=== PATIENT | female | born 1960 | race Caucasian/White ===

== ENCOUNTER 2020-10-04 11:44 | Inpatient (IN) | payer MEDICARE, OTHER ==
[~2020-10-04] VITALS: Ht 152.4 cm; Wt 84.0 kg
--- NOTE | 2020-10-04 12:27 | REP ---
INDICATION: CHEST PAIN. COMPARISON: None. TECHNIQUE: Single portable AP view of the chest was performed. FINDINGS: There is no acute infiltrate or pulmonary edema. Lungs are clear. The heart is not significantly enlarged. The mediastinal silhouette is unremarkable. The visualized osseous structures are intact. IMPRESSION: No acute pulmonary disease. <Electronically signed by Otis Shaffer > 10/04/20 [id number]
[2020-10-04 12:31] LABS: BASO % 0.2 % (0.0-1.0); EOS % 0.2 % (0.0-3.0); HEMOGLOBIN 11.2 g/dl (12.0-15.5); LYMPH # 1.6 10^3/uL (1.5-5.0); LYMPH % 28.1 % (24.0-44.0); MEAN CORPUSCULAR HEMOGLOBIN 19.8 pg (27.0-33.0); MEAN CORPUSCULAR HGB CONC 30.3 g/dl (32.0-36.5); MEAN CORPUSCULAR VOLUME 65.3 fl (80.0-96.0); MONO # 0.3 10^3/uL (0.0-0.8); MONO % 5.7 % (2.0-8.0); NEUTROPHILS # 3.6 10^3/uL (1.5-8.5); NEUTROPHILS % 65.3 % (36.0-66.0); PLATELET COUNT, AUTOMATED 271 10^3/uL (150-450); RED BLOOD COUNT 5.67 10^6/uL (4.00-5.40); WHITE BLOOD COUNT 5.6 10^3/uL (4.0-10.0)
[2020-10-04 12:45] LABS: INR 0.92; PROTHROMBIN TIME 12.5 SECONDS (12.5-14.3)
[2020-10-04] MEDS ORDERED: MECLIZINE 25 MG TABLET PO ONE (13:00)
[2020-10-04] MEDS ORDERED: ONDANSETRON 4MG/2ML VIAL IV ONE (13:00)
[2020-10-04 13:02] LABS: ALBUMIN 3.9 GM/DL (3.2-5.2); ALT/SGPT 23 U/L (12-78); BILIRUBIN,DIRECT 0.1 MG/DL (0.0-0.2); BILIRUBIN,TOTAL 0.5 MG/DL (0.2-1.0); CK-MB VALUE MASS < 1.0 NG/ML (<3.6); CPK CREATINE PHOSPHOKINASE 55 U/L (26-192); LIPASE 91 U/L (73-393); MB/CK RELATIVE INDEX 1.82 (< OR =4); TOTAL PROTEIN 7.8 GM/DL (6.4-8.2); TROPONIN I < 0.02 NG/ML (< 0.10)
[2020-10-04 13:12] LABS: BLOOD UREA NITROGEN 14 MG/DL (7-18); CALCIUM LEVEL 9.3 MG/DL (8.8-10.2); CARBON DIOXIDE LEVEL 27 MEQ/L (21-32); CHLORIDE LEVEL 107 MEQ/L (98-107); CREATININE FOR GFR 0.58 MG/DL (0.55-1.30); GLOMERULAR FILTRATION RATE > 60.0 (>45); GLUCOSE, FASTING 94 MG/DL (70-100); SODIUM LEVEL 140 MEQ/L (136-145)
[2020-10-04] MEDS ORDERED: CYMB1CAP5 PO (13:14)
[2020-10-04] MEDS ORDERED: ESTR625TA PO (13:14)
[2020-10-04] MEDS ORDERED: VALI5TAB PO (13:14)
[2020-10-04] MEDS ORDERED: ISOVUE-370 76% 100ML VIAL As Ordered ONE (13:31)
[2020-10-04] MEDS ORDERED: diazePAM 2 MG TAB PO ONE (14:15)
--- NOTE | 2020-10-04 15:32 | REPVR ---
PROCEDURE INFORMATION: Exam: CT Head Without Contrast Exam date and time: 10/04/2020 12:57 PM Age: 60 years old Clinical indication: Pain; Dizziness; Headache; Additional info: Headache dizzy vomiting TECHNIQUE: Imaging protocol: Computed tomography of the head without contrast. Radiation optimization: All CT scans at this facility use at least one of these dose optimization techniques: automated exposure control; mA and/or kV adjustment per patient size (includes targeted exams where dose is matched to clinical indication); or iterative reconstruction. COMPARISON: No relevant prior studies available. FINDINGS: Brain: No acute intracranial hemorrhage, cerebral edema, or midline shift. Cerebral ventricles: No hydrocephalus. Paranasal sinuses: There is no acute sinusitis. Mastoid air cells: Visualized mastoid air cells are well aerated. Orbital cavity: Unremarkable as visualized. Bones/joints: No acute fracture. Soft tissues: Unremarkable. IMPRESSION: No acute intracranial abnormality. Electronically signed by: Davion Hodgson On 10/04/2020 15:32:26 PM
--- NOTE | 2020-10-04 15:40 | REP ---
INDICATION: chest pain SOB. COMPARISON: None. TECHNIQUE: CT angiogram chest performed following the intravenous administration of 100 cc of Isovue 370. Sagittal and coronal reconstruction images are performed. FINDINGS: Lungs: Clear, no infiltrate or nodule. Mediastinum: No adenopathy. Pulmonary arteries: No evidence of pulmonary embolism. Elizabeth: No adenopathy. Axilla: No adenopathy. Pleura: No effusion. Heart: Not enlarged. Thoracic aorta: No aneurysm or dissection. Upper abdominal structures: There are degenerative changes of the spine without compression deformity. Visualized osseous structures: Unremarkable. IMPRESSION: No CT evidence of pulmonary embolism. No infiltrate seen. <Electronically signed by Otis Shaffer > 10/04/20 [id number]
[2020-10-04] MEDS ORDERED: D31000TA2 PO (15:41)
[2020-10-04 16:39] LABS: RSV AMPLIFICATION NEGATIVE (NEGATIVE)
--- NOTE | 2020-10-04 17:04 | ECGEPIP ---
[facility] - ED Test Date: 2020-10-04 Pat Name: GERI RUBY Department: Room: - Gender: Female Second Vp Hr Assessment: HC : 1960 Requested By: KALA Kent Order Number: [id number] Reading MD: Madiha Grullon Measurements Intervals [place] Rate: 87 P: 42 IN: 138 QRS: 29 QRSD: 80 T: 33 QT: 386 QTc: 464 Interpretive Statements Normal sinus rhythm Cannot rule out Anterior infarct , age undetermined NSTTW abnormalities No prior Electronically Signed on 10-04-2020 17:04:14 EDT by Madiha Grullon
[2020-10-04 18:46] LABS: CK-MB VALUE MASS < 1.0 NG/ML (<3.6); CPK CREATINE PHOSPHOKINASE 45 U/L (26-192); MB/CK RELATIVE INDEX 2.22 (< OR =4); TROPONIN I < 0.02 NG/ML (< 0.10)
[2020-10-04] MEDS ORDERED: GI COCKTAIL 50ML BTL(HYOSCYAMINE/MAALOX/LIDOCAINE VISCOUS)(1:3:1) PO PRN (19:05)
[2020-10-04] MEDS ORDERED: PANTOPRAZOLE 40MG TAB (PROTONIX) PO ONE (19:05)
[2020-10-04] MEDS ORDERED: GI COCKTAIL 50ML BTL(HYOSCYAMINE/MAALOX/LIDOCAINE VISCOUS)(1:3:1) PO ONE (19:05)
[2020-10-04] MEDS ORDERED: diazePAM 5MG TABLET PO PRN (19:05)
[2020-10-04] MEDS: MECLIZINE 25 MG TABLET PO SCH ×2 (19:37→23:17)
[2020-10-04 20:03] VITALS: BP_SYST 115; BP_SYST 119; BP_SYST 124; BP_DIAS 59; BP_DIAS 75; BP_DIAS 81
--- NOTE | 2020-10-04 20:22 | HPE ---
HISTORY AND PHYSICAL DATE OF ADMISSION: 10/04/2020 CHIEF COMPLAINT: "The room is spinning." HISTORY OF PRESENT ILLNESS: A 60-year-old female who lives near [place], vacationing in the [facility] until this Sunday, presented to the emergency room after waking up short or breath. The patient says he has had no prior episodes of vertigo before, denies any shortness of breath, chest pain pressure, fever, chills, sore throat, runny nose, ear discharge in the past few days. The patient complained also of epigastric abdominal discomfort described as chest pain radiating across the abdomen, underneath the ribs that occurs occasionally with history of reflux and a hiatal hernia in the past. The patient was unable to ambulate well, holding onto her with her vertigo. She denied any changes in vision, blurred vision, diplopia. She did have some nausea, one episode of vomiting, has had decrease in oral intake due to this. Along with this, she has chronic left lower quadrant abdominal discomfort that acts on and off, lasts for a few minutes, described as very crampy, lasts for several hours, unchanged by position or food as well as paresthesias in the left anterior thigh that she has had for the past one week. She was concerned about these symptoms and presented to the ER for further evaluation. Glucose level was 94. CT of the head was negative. CT of the chest to rule out aneurysm, PE was also negative. Chest x-ray was negative. EKG was sinus rhythm without acute ST-T wave changes. Hospitalist was called to admit the patient. She was not orthostatic when she came in, no dehydrated. All blood work was negative including troponins x2 sets. PAST MEDICAL HISTORY: 1. Hiatal hernia. 2. Gastroesophageal reflux disease. 3. Cervical and thoracic disc bulging. 4. Hypothyroidism. 5. Thyroid nodules with negative, benign biopsy. 6. Dyslipidemia. 7. Endometriosis requiring hysterectomy. 8. Left hernia repair. PAST SURGICAL HISTORY: 1. Hysterectomy due to uncontrolled bleeding from endometriosis. 2. EGD showing hiatal hernia and gastroesophageal reflux. 3. Left hernia repair. 4. Tonsillectomy. 5. Right foot injury with surgical repair many years ago. ALLERGIES: REGLAN MAKING HER HYPER, LOVASTATIN CAUSING MYALGIAS. SOCIAL HISTORY: The patient is vacationing in the area, usually lives near [place]. 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 FAMILY HISTORY: Mother with atherosclerotic disease at the age of 79. Father of prostate cancer at the age of 82. REVIEW OF SYSTEMS: As per HPI, 12-point system otherwise negative. HOME MEDICATIONS: 1. Vitamin D 1000 units daily. 2. Valium 5 mg b.i.d. 3. Duloxetine 30 q.h.s. 4. Premarin 0.625 daily. PHYSICAL EXAMINATION: VITAL SIGNS: Temperature 98.3, pulse 81, respiratory rate 18, blood pressure 116/72, 97% on room air. The patient was not orthostatic. GENERAL: Awake, alert and oriented x3, answered questions appropriately. No pallor, icterus, jaundice. Face is symmetric. Tongue is midline. The patient has no nystagmus, horizontal or vertical. The patient's uvula and tongue are both midline. No dysmetria on finger to nose testing. No pronator drift. Motor function is 5/5 x4 extremities. Gait was not tested. HEENT: Pupils round, reactive to light and accommodation. Extraocular muscles are intact, normocephalic, atraumatic. No jugular venous distention, thyromegaly, stridor or carotid bruit. Moist mucous membranes. LUNGS: Clear to auscultation, no wheezing, rales or rhonchi. HEART: S1, S2, sinus rhythm. No murmurs, rubs or gallops. ABDOMEN: Soft, slightly tender epigastric and left lower quadrant. No rebound, guarding. Positive bowel sounds. No CVA tenderness. EXTREMITIES: No cyanosis, clubbing or pitting edema. Decreased sensation in left upper thigh. Negative Babinski bilaterally. Gait was not tested. EKG: Sinus rhythm. No acute ST-T wave changes. Ventricular rate of 87, AR interval 138 milliseconds, QRS duration 80, QT 386, QTC 464. LABORATORY DATA: White count 5.6, hemoglobin 11, hematocrit 37, platelet count 271. Sodium 140, potassium 4, chloride 107, bicarb 27, BUN 14, creatinine 0.58, glucose 94, calcium 9.3, T bili 0.5, direct bili 0.1. AST 16, ALT 23, alk phos 96, total CK 55, MB fraction less than 1. Relative index 1.82, troponin less than 0.02, lipase of 91. IMAGING STUDIES: CT of head negative. Chest x-ray: No acute cardiopulmonary findings. CT of chest: No aneurysm or pulmonary embolism. ASSESSMENT AND PLAN: This is a 60-year-old female who presented to the emergency room with acute onset of vertigo, a history of cervical and thoracic disc bulging, hiatal hernia, gastroesophageal reflux, hypothyroidism, thyroid nodule, benign biopsy, dyslipidemia and endometriosis requiring hysterectomy, right inguinal hernia repair, right foot injury and tonsillectomy. CURRENT ISSUES: 1. Vertigo, rule out central vertigo, appears to be benign positional vertigo but obtain an MRI of the brain to rule out cerebellar CVA. The patient will be evaluated by physical therapy, occupational therapy, kept on meclizine q.6 hourly for symptomatic relief. The patient is not orthostatic, no other focal deficits aside from numbness of the left upper thigh. She will be resumed on all her home medications. 2. Chest pain, rule out WI, acute coronary syndrome. Obtain 2D echocardiogram, cardiac markers q.6 hourly, appears to be negative. This appears to be atypical chest pain from hiatal hernia and gastroesophageal reflux. We will keep on PPI and Carafate. 3. GI cocktail as needed. 4. Anxiety. Continue on home dose of Valium. 5. Dyslipidemia. Check lipid profile in the morning. 6. Hypertension. Appears to be controlled. 7. History of reflux, hiatal hernia. Start on PPI and Carafate. 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 Assisted ambulation only and fall precautions. 8. DVT prophylaxis with compression stockings. Discharge in the morning if all the tests are negative. MTDD
[2020-10-04] MEDS: SUCRALFATE 1 GM TAB PO SCH (20:25)
[2020-10-04 20:30] VITALS: BP 115/59
[2020-10-04 21:00] VITALS: BP 115/59
[2020-10-04] MEDS ORDERED: DULoxetine 30 MG CAP (CYMBALTA) PO SCH (21:00)
--- NOTE | 2020-10-04 23:44 | REPVR ---
PROCEDURE INFORMATION: Exam: MR Head Without Contrast Exam date and time: 10/04/2020 9:22 PM Age: 60 years old Clinical indication: Patient HX: Severe dizziness, nausea, ; additional info: Dizziness R/O cerebellar CVA TECHNIQUE: Imaging protocol: MR of the head without contrast. COMPARISON: CT Head without contrast 10/04/2020 2:49 PM FINDINGS: Brain: There is no evidence of abnormal bright signal intensity on the diffusion-weighted sequence and no evidence of acute stroke. There is no evidence of mass effect. Cerebral ventricles: Normal ventricles. Bones/joints: Unremarkable. Paranasal sinuses: Clear paranasal sinuses. Mastoid air cells: Clear mastoid air cells. Orbital cavity: Symmetric orbits. Soft tissues: Unremarkable. Other vasculature: The vessels of the [id number] have a normal signal void. IMPRESSION: Normal appearing MRI scan of the brain. Electronically signed by: Olu Gifford On 10/04/2020 23:43:59 PM
[2020-10-05 00:24] LABS: CK-MB VALUE MASS < 1.0 NG/ML (<3.6); CPK CREATINE PHOSPHOKINASE 51 U/L (26-192); MB/CK RELATIVE INDEX 1.96 (< OR =4); TROPONIN I < 0.02 NG/ML (< 0.10)
[2020-10-05] MEDS: MECLIZINE 25 MG TABLET PO SCH ×2 (05:00→12:32)
[2020-10-05 06:00] VITALS: BP 113/56
[2020-10-05 06:10] LABS: BASO % 0.4 % (0.0-1.0); EOS # 0.1 10^3/uL (0.0-0.5); EOS % 0.9 % (0.0-3.0); HEMATOCRIT 35.7 % (36.0-47.0); HEMOGLOBIN 10.4 g/dl (12.0-15.5); LYMPH # 1.8 10^3/uL (1.5-5.0); LYMPH % 33.7 % (24.0-44.0); MEAN CORPUSCULAR HEMOGLOBIN 19.5 pg (27.0-33.0); MEAN CORPUSCULAR HGB CONC 29.1 g/dl (32.0-36.5); MEAN CORPUSCULAR VOLUME 66.9 fl (80.0-96.0); MONO # 0.5 10^3/uL (0.0-0.8); NEUTROPHILS % 55.6 % (36.0-66.0); PLATELET COUNT, AUTOMATED 253 10^3/uL (150-450); RED BLOOD COUNT 5.34 10^6/uL (4.00-5.40); WHITE BLOOD COUNT 5.3 10^3/uL (4.0-10.0)
[2020-10-05 06:38] LABS: BLOOD UREA NITROGEN 15 MG/DL (7-18); CALCIUM LEVEL 8.9 MG/DL (8.8-10.2); CARBON DIOXIDE LEVEL 31 MEQ/L (21-32); CHLORIDE LEVEL 107 MEQ/L (98-107); CHOLESTEROL LEVEL 214 MG/DL (<200); CHOLESTEROL RISK RATIO 4.976 (<5); CK-MB VALUE MASS < 1.0 NG/ML (<3.6); CPK CREATINE PHOSPHOKINASE 46 U/L (26-192); CREATININE FOR GFR 0.64 MG/DL (0.55-1.30); GLOMERULAR FILTRATION RATE > 60.0 (>45); GLUCOSE, FASTING 100 MG/DL (70-100); HDL CHOLESTEROL 43 MG/DL (>40); LDL CHOLESTEROL 145 MG/DL (<100); MB/CK RELATIVE INDEX 2.17 (< OR =4); NON-HDL-C 171 MG/DL; POTASSIUM SERUM 3.9 MEQ/L (3.5-5.1); SODIUM LEVEL 140 MEQ/L (136-145); THYROID STIMULATING HORMONE 0.528 uIU/ML (0.358-3.740); TRIGLYCERIDES LEVEL 132 MG/DL (<150); TROPONIN I < 0.02 NG/ML (< 0.10)
[2020-10-05] MEDS: SUCRALFATE 1 GM TAB PO SCH ×2 (08:49→12:32)
[2020-10-05] MEDS ORDERED: PANTOPRAZOLE 40MG TAB (PROTONIX) PO SCH (09:00)
[2020-10-05] MEDS ORDERED: VITAMIN D 1,000 INTERNATIONAL UNITS TABLET PO SCH (09:00)
[2020-10-05] MEDS ORDERED: MECL-86 PO (12:20)
[2020-10-05] MEDS ORDERED: PANT40TA29 PO (12:22)
[2020-10-05] MEDS ORDERED: SUCR1TA PO (12:22)
[2020-10-05 14:00] VITALS: BP 125/73
--- NOTE | 2020-10-05 23:39 | DS.PDOC ---
Discharge Summary General Date of Admission Oct 04, 2020 at 16:23 Date of Discharge Oct 05, 2020 Discharge Summary PROCEDURES PERFORMED DURING STAY: None ADMITTING DIAGNOSES: 1. Vertigo 2. Chest pain r/o ACS 3. GERD 4. Anxiety 5. Dyslipidemia 6. Hypertension DISCHARGE DIAGNOSES: 1. Peripheral vertigo 2. Chest pain r/o ACS 3. GERD 4. Anxiety 5. Dyslipidemia 6. Hypertension COMPLICATIONS/CHIEF COMPLAINT: Ataxia. HISTORY OF PRESENT ILLNESS: Copied from admitting physician's H&P " A 60-year-old female who lives near [place], vacationing in the [facility] until this Sunday, presented to the emergency room after waking up short or breath. The patient says he has had no prior episodes of vertigo before, denies any shortness of breath, chest pain pressure, fever, chills, sore throat, runny nose, ear discharge in the past few days. The patient complained also of epigastric abdominal discomfort described as chest pain radiating across the abdomen, underneath the ribs that occurs occasionally with history of reflux and a hiatal hernia in the past. The patient was unable to ambulate well, holding onto her with her vertigo. She denied any changes in vision, blurred vision, diplopia. She did have some nausea, one episode of vomiting, has had decrease in oral intake due to this. Along with this, she has chronic left lower quadrant abdominal discomfort that acts on and off, lasts for a few minutes, described as very crampy, lasts for several hours, unchanged by position or food as well as paresthesias in the left anterior thigh that she has had for the past one week. She was concerned about these symptoms and presented to the ER for further evaluation. Glucose level was 94. CT of the head was negative. CT of the chest to rule out aneurysm, PE was also negative. Chest x-ray was negative. EKG was sinus rhythm without acute ST-T wave changes. Hospitalist was called to admit the patient. She was not orthostatic when she came in, no dehydrated. All blood work was negative including troponins x2 sets. " HOSPITAL COURSE: Repeated troponin were negative x4. MRI was negative for stoke. PT evaluated patient and recommended outpatient PT for vertigo. Patient felt that his vertigo was better, but still present. Recommended continuation of meclizine and outpatient PT. DISCHARGE MEDICATIONS: Please see below. ALLERGIES: Please see below. PHYSICAL EXAMINATION ON DISCHARGE: VITAL SIGNS: Please see below. GENERAL: Comfortable, in no apparent distress HEENT: Head normocephalic, atraumatic NECK: Supple CARDIOVASCULAR EXAMINATION: Regular rate and rhythm RESPIRATORY EXAMINATION: Lungs clear to auscultation bilaterally ABDOMINAL EXAMINATION: Soft, non-tender, normal bowel sounds EXTREMITIES: No pitting edema bilaterally SKIN: Warm and dry NEUROLOGICAL EXAMINATION: CN 3-12 grossly intact PSYCHIATRIC EXAMINATION: Normal mood and affect LABORATORY DATA: Please see below. IMAGING: Radiologist interpretation MRI brain Normal appearing MRI scan of the brain CT angio chest No CT evidence of pulmonary embolism. No infiltrate seen. PROGNOSIS: Good ACTIVITY: As tolerated. DIET: As tolerated DISCHARGE PLAN: Home DISPOSITION: 01 Home, Self-Care. DISCHARGE INSTRUCTIONS: 1. Follow up with your PCP within 1 week 2. Outpatient PT for vertigo DISCHARGE CONDITION: Stable. Total time spent on discharge planning, discharge summary, and medication reconciliation: 40 minutes Vital Signs/I&Os Vital Signs Date Time Temp Pulse Resp B/P (MAP) Pulse Ox O2 Delivery O2 Flow Rate FiO2 10/05/20 14:00 97.4 82 17 125/73 (90) 98 Room Air I&O- Last 24 Hours up to 6 AM 10/05/20 06:00 Intake Total 240 ml Output Total 0 ml Balance 240 ml Laboratory Data Labs 24H Laboratory Tests 2 10/04/20 23:44: Total Creatine Kinase 51, Creatine Kinase MB < 1.0, Creatine Kinase MB Relative Index 1.96, Troponin I < 0.02 10/05/20 05:43: Total Creatine Kinase 46, Creatine Kinase MB < 1.0, Creatine Kinase MB Relative Index 2.17, Troponin I < 0.02, Immature Granulocyte % (Auto) 0.4, Neutrophils (%) (Auto) 55.6, Lymphocytes (%) (Auto) 33.7, Monocytes (%) (Auto) 9.0H, Eosinophils (%) (Auto) 0.9, Basophils (%) (Auto) 0.4, Neutrophils # (Auto) 3.0, Lymphocytes # (Auto) 1.8, Monocytes # (Auto) 0.5, Eosinophils # (Auto) 0.1, Basophils # (Auto) 0.0, Nucleated Red Blood Cells % (auto) 0.0, Anion Gap 2L, Glomerular Filtration Rate > 60.0, Calcium Level 8.9, Triglycerides Level 132, Total Cholesterol 214H, LDL Cholesterol 145H, Non-HDL Cholesterol (LDL + VLDL) 171, Total HDL Cholesterol 43, Cholesterol/HDL Ratio 4.976, Thyroid Stimulating Hormone (TSH) 0.528 CBC/BMP Laboratory Tests 10/05/20 05:43 Discharge Medications Scheduled Cholecalciferol (Vitamin D3) (Vitamin D3) 1,000 Unit Tablet, 1,000 UNITS PO DAILY, (Reported) Conjugated Estrogens (Premarin) 0.625 Mg Tablet, 0.625 MG PO DAILY, (Reported) Duloxetine Hcl (Cymbalta) 30 Mg Capsule.dr, 30 MG PO QHS, (Reported) Pantoprazole Sodium (Pantoprazole Sodium) 40 Mg Tablet.dr, 40 MG PO DAILY Sucralfate (Sucralfate) 1 Gm Tablet, 1 GM PO ACHS Scheduled PRN Diazepam (Valium) 5 Mg Tablet, 5 MG PO BID PRN for ANXIETY, (Reported) Meclizine HCl (Meclizine HCl) 25 Mg Tablet, 25 MG PO Q6HP PRN for VERTIGO/DIZZINESS Allergies Coded Allergies: metoclopramide (Verified Adverse Reaction, Unknown, hyper, 10/04/20) rosuvastatin (Verified Adverse Reaction, Unknown, leg problems , 10/04/20) NASIR CARLSON DO Oct 05, 2020 23:39
--- NOTE | 2020-10-06 11:06 | ECHO ---
ECHOCARDIOGRAM DATE OF PROCEDURE: 10/05/2020 Age: Gender: Height: 152 cm Weight: 76 kg REFERRING PHYSICIAN: Dr. Ching Mahajan. INDICATION: Chest pain. MEASUREMENTS: IVS 0.9 cm LV 4.4 cm LVPW 0.9 cm LA 2.9 cm Aorta 2.7 cm IVC 1.1 cm Mitral E wave velocity 85 A wave 92 E prime septal 9.3 E prime lateral 13.3 FINDINGS: This study is of acceptable technical quality. Underlying sinus rhythm. Left ventricle is normal size and systolic function, I estimated LVEF 65 to 70%. No segmental wall motion abnormalities are appreciated. Right ventricle is also normal size and systolic function. Both atria appear normal. Aortic, mitral, and tricuspid valves appear normal. Pulmonic valve was not well seen. No pericardial effusion is noted. Inferior vena cava is normal size. Aortic root and aortic arch appear normal. Abdominal aorta was not visualized. Doppler interrogation of aortic valve reveals competent valve without stenosis or insufficiency. Same applies to mitral valve. Mild tricuspid insufficiency is seen. Calculated pulmonary artery pressure is in upper limits of normal values in high 20s. Mitral inflow pattern and tissue Doppler imaging of mitral annulus revealed grade 1 diastolic dysfunction. CONCLUSIONS: 1. Study is of acceptable technical quality, underlying sinus rhythm. 2. Normal LV size with preserved LV systolic function and grade 1 diastolic dysfunction. 3. No significant valvular disease. 4. Normal central venous pressure and likely normal pulmonary artery pressure. 5. No obvious findings to explain chest discomfort.
== END 2020-10-05 14:02 | disposition home or self-care (01) | DRG 149 ==
LOC: M ED 11:44 → M ED INP 16:23 → ENRESERV 18:57 → M MSPAV 20:01
PROVIDERS: ADMIT General Practice; ATTEND Internal Medicine
DX: H81.399 Other peripheral vertigo, unspecified ear (principal); M50.20 Other cervical disc displacement, unspecified cervical region; I10 Essential (primary) hypertension; M51.24 Other intervertebral disc displacement, thoracic region; K44.9 Diaphragmatic hernia without obstruction or gangrene; K21.9 Gastro-esophageal reflux disease without esophagitis; R07.9 Chest pain, unspecified; E03.9 Hypothyroidism, unspecified; E78.5 Hyperlipidemia, unspecified; Z88.8 Allergy status to other drugs, medicaments and biological substances; Z79.899 Other long term (current) drug therapy